=== PATIENT | male | born 1970 ===

== ENCOUNTER → 2018-04-15 13:10 | Outpatient (REF) | payer OTHER, SELFPAY ==
[2018-04-15 13:22] LABS: Add Manual Diff / Slide Review NO; Basophils Percent Auto 0.5 % (0-2); Eosinophils Percent Auto 2.3 % (2-4); Hematocrit 44.5 % (41-53); Hemoglobin 14.7 g/dL (13.5-17.5); Lymphocytes Percent Auto 17.1 % (25-40); Mean Corpuscular Volume 99.9 fL (80-100); Monocytes Percent Auto 9.4 % (3-14); Neutrophils Absolute Auto 8100 /uL (1500-7000); Neutrophils Percent Auto 70.7 % (50-75); Platelet Count 271 X10^3/uL (150-400); Red Blood Cell Count 4.45 X10^6/uL (4.5-5.9); Red Cell Distribution Width 13.9 % (11.6-14.8); White Blood Cell Count 11.5 X10^3/uL (4.5-11.0)
[2018-04-15 13:32] LABS: Alanine Aminotransferase 39 IU/L (21-72); Albumin 4.6 g/dL (3.5-5.0); Albumin Globulin Ratio 1.4 (1.0-2.8); Alkaline Phosphatase 93 U/L (38-126); Aspartate Aminotransferase 27 IU/L (17-59); Bilirubin Total 0.9 mg/dL (0.2-1.3); Blood Urea Nitrogen 16 mg/dL (9-20); Calcium 9.9 mg/dL (8.4-10.2); Carbon Dioxide 27 mmol/L (22-32); Chloride 102 mmol/L (98-107); Cholesterol 185 mg/dL (140-199); Estimated Glomerular Filt Rate > 60.0 mL/min (>60); Globulin 3.3 g/dL (1.7-4.1); Glucose 103 mg/dL (70-100); HDL Cholesterol 43 mg/dL (40-60); HEMOLYSIS 19 (0-50); LDL Cholesterol Calculated 101 mg/dL (<100); Potassium 5.2 mmol/L (3.4-5.1); Sodium 143 mmol/L (137-145); Total Protein 7.9 g/dL (6.3-8.2); Triglycerides 207 mg/dL (35-150)
[2018-04-15 14:01] LABS: Prostate Specific Antigen 0.763 ng/mL (0.10-4.00)
[2018-04-15 14:03] LABS: Hemoglobin A1C% w Est Avg Glu 5.7 % (4.0-6.0)
== END ==
LOC: LAB 13:10
PROVIDERS: Visit Provider Family Medicine
DX: Z12.5 Encounter for screening for malignant neoplasm of prostate (principal); Z13.6 Encounter for screening for cardiovascular disorders; Z13.1 Encounter for screening for diabetes mellitus; Z13.228 Encounter for screening for other metabolic disorders
CPT/HCPCS: 36415; 80053; 80061; 83036; 84153; 85025